=== PATIENT | female | born 1960 | race Caucasian/White ===

== ENCOUNTER → 2022-01-27 | Outpatient (CLI) | payer OTHER, SELFPAY ==
--- NOTE | 2022-01-27 07:42 | US_ITS ---
STUDY: ABDOMINAL ULTRASOUND REASON FOR EXAM: Female, 61 years old. RUQ PAIN TECHNIQUE: Transabdominal ultrasound was performed with real-time and static borrego scale imaging. TECHNICAL QUALITY: Adequate. COMPARISON: None. FINDINGS: Liver: The liver measures 18.2 cm. There is diffusely increased echogenicity of the liver. The bile ducts are within normal limits. There is hepatic color flow. The direction of portal flow is hepatopetal. There is no demonstrated mass lesion. Portal vein measurement: Gallbladder: Normal distended gallbladder. The gallbladder wall measures 2.1 mm. There is a negative sonographic Garnica''s sign. There is no pericholecystic fluid. There are no gallstones. Common Bile Duct (C.B.D.): The common bile duct measures 5.6 mm. Pancreas: Normal size of the head, body and tail of the pancreas. There is normal echogenicity of the pancreas. There is no demonstrated pancreatic mass or cyst. Spleen: Normal size of the spleen. The spleen measures 10.2 x 5.1 x 5.1 cm. Right Kidney: Normal size of the right kidney. The right kidney measures 12 x 5.7 x 4.5 cm. Normal renal cortex. The right cortex measures 1.5 cm. There is no demonstrated renal mass or cyst. There is no right hydronephrosis. Left Kidney: Normal size of the left kidney. The left kidney measures 11.8 x 6.2 x 4.7 cm. Normal renal cortex. The left cortex measures 1.5 cm. There is a small hyperechoic nodule measuring 3.5 x 3.8 x 3.1 cm possibly representing hemorrhagic cyst although cannot exclude solid nodule.. There is no left hydronephrosis. Aorta: No evidence for aortic aneurysm I.V.C.: The IVC is patent. There is no ascites. US/Abdomen Complete IMPRESSION: Mildly enlarged fatty infiltrated liver. No evidence for gallstones or acute cholecystitis Incidental finding of possible hemorrhagic cyst or solid nodule left kidney. Contrast-enhanced CT or MRI recommended for further evaluation Electronically Signed: Cas Mondragon MD at 22:15 EDT ,
== END | disposition home or self-care (01) ==
PROVIDERS: PCP Family Medicine; Referring Provider Nurse Practitioner Family; Visit Provider Nurse Practitioner Family
DX: R10.11 Right upper quadrant pain (principal)
CPT/HCPCS: 76700